=== PATIENT | male | born 1980 | race Caucasian/White ===

== ENCOUNTER 2020-10-07 05:48 | Emergency (ER) | payer BC ==
[~2020-10-07] VITALS: Ht 177.8 cm; Wt 134.9 kg
[~2020-10-07 05:48] MED LIST: HYDROCODON-ACE1 EAC7; PROTONIX
[2020-10-07 06:14] LABS: ABSOLUTE BASOPHILS 0.2 thou/uL (0.0-0.2); ABSOLUTE EOSINOPHILS 0.3 thou/uL (0.0-0.7); ABSOLUTE LYMPHOCYTES 5.1 thou/uL (0.8-5.3); ABSOLUTE MONOCYTES 1.1 thou/uL (0.0-1.2); ABSOLUTE NEUTROPHILS 5.5 thou/uL (1.6-8.1); BASOPHILS 1.3 %; EOSINOPHILS 2.8 %; HEMATOCRIT 46.8 % (42.0-52.0); HEMOGLOBIN 15.9 gm/dL (14.0-18.0); LYMPHOCYTES 41.8 %; MCHC 34.1 g/dL (28.0-37.0); MONOCYTES 9.1 %; MPV 8.4 fl. (7.2-11.1); NUCLEATED RBCS 0 /100WBC; PLATELET COUNT* 267 thou/uL (150-400); RBC 5.14 mil/uL (4.50-6.00); WBC 12.2 thou/uL (4.0-11.0)
[2020-10-07 06:23] LABS: CALCIUM 9.1 mg/dL (8.5-10.1); CREATININE 1.2 mg/dL (0.6-1.3); POTASSIUM 3.1 mmol/L (3.5-5.1)
[2020-10-07 06:25] LABS: APTT 25.7 Seconds (25.0-31.3); PROTIME 9.8 Seconds (9.20-11.50)
[2020-10-07 06:29] LABS: ALBUMIN 4.1 g/dL (3.4-5.0); TOTAL BILIRUBIN 0.3 mg/dL (<0.1-1.0); TOTAL PROTEIN 8.1 g/dL (6.4-8.2)
[2020-10-07 06:47] LABS: INR < 0.9
[2020-10-07 06:53] LABS: SALICYLATE < 2.8 mg/dL (2.8-20.0)
[2020-10-07 06:54] LABS: ACETAMINOPHEN < 2 ug/mL (10-30); ALCOHOL < 10 mg/dL (<10)
[2020-10-07 08:57] LABS: AMP/METHAMP Negative (Negative); BARBITURATES Negative (Negative); BENZODIAZEPINES Negative (Negative); COCAINE Negative (Negative); METHADONE Negative (Negative); OPIATES Negative (Negative); PCP Negative (Negative); THC Negative (Negative)
[2020-10-07 09:17] VITALS: BP 124/93
--- NOTE | 2020-10-07 10:09 | EKG ---
[place] [address] ELECTROCARDIOGRAM REPORT Name: KELLI BARAKAT Phyllis Room: [facility]#: [id number] Admission: 10/07/20 Attend Phys: Discharge: 10/07/20 Date of : 78 Date of Service: 10/07/20 0555 Report #: [id number] THIS REPORT FOR: //name// 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
== END 2020-10-07 09:19 | disposition home or self-care (01) ==
LOC: M.ERS 05:48
PROVIDERS: Personal Emergency Response Attendant
DX: T44.7X1A Poisoning by beta-adrenoreceptor antagonists, accidental (unintentional), initial encounter (principal); I10 Essential (primary) hypertension; K21.9 Gastro-esophageal reflux disease without esophagitis; R79.1 Abnormal coagulation profile; Z90.49 Acquired absence of other specified parts of digestive tract; Y92.89 Other specified places as the place of occurrence of the external cause